=== PATIENT | male | born 1995 | race Caucasian/White ===

== ENCOUNTER 2022-07-14 11:36 | Emergency (ER) | payer SELFPAY ==
[~2022-07-14] VITALS: Ht 177.8 cm; Wt 99.8 kg
[2022-07-14 11:37] VITALS: BP 122/73
--- NOTE | 2022-07-14 11:40 | NUR ---
27M BIBA from the streets with c/o ground level fall and ETOH today. EMS reports pt was found near his home laying on the ground, abrasions noted to right side of forehead, bleeding controlled, pt placed in C-collar for precautions. Pt opens eyes when called by name, not responsive to commands upon assessment. No oral/facial trauma noted aside from abrasions. Pt placed on bedside monitor. Dr. Faust at bedside evaluating pt upon arrival.
[2022-07-14 12:51] LABS: BASOPHILS % (AUTO) 0.6 % (0.0-2.0); EOSINOPHILS % (AUTO) 0.2 % (0.0-4.0); HEMATOCRIT 42.3 % (36-52); HEMOGLOBIN 14.5 g/dL (12.0-18.0); LYMPHOCYTES # (AUTO) 1.6 K/uL (2.0-11.5); LYMPHOCYTES % (AUTO) 20.6 % (20.5-51.1); MEAN CORPUSCULAR HEMOGLOBIN 32 pg (27-31); MEAN CORPUSCULAR HGB CONC 34 g/dL (33-37); MEAN CORPUSCULAR VOLUME 93.8 fL (80-94); MONOCYTES # (AUTO) 0.4 K/uL (0.8-1.0); MONOCYTES % (AUTO) 5.5 % (1.7-9.3); NEUTROPHILS # (AUTO) 5.6 K/uL (1.8-7.7); NEUTROPHILS % (AUTO) 73.1 % (42.2-75.2); PLATELET COUNT (AUTO) 239 K/uL (140-450); RED BLOOD CELL COUNT(AUTO) 4.52 MIL/uL (4.20-6.10); RED CELL DISTRIBUTION WIDTH 13.7 % (11.6-13.7); WHITE BLOOD COUNT (AUTO) 7.6 K/uL (4.8-10.8)
[2022-07-14 13:14] LABS: ALBUMIN 3.6 g/dL (3.4-5.0); CARBON DIOXIDE 24.7 mmol/L (21-32); CREATININE 0.7 mg/dL (0.6-1.3); MAGNESIUM 2.1 mg/dL (1.8-2.4); PHOSPHORUS 1.5 mg/dL (2.5-4.9); POTASSIUM 3.7 mmol/L (3.5-5.1); TOTAL BILIRUBIN 0.3 mg/dL (0.0-1.0)
[2022-07-14] MEDS ORDERED: NACL 0.9% 1,000 ML IV ONE ×3 (13:35→14:25)
--- NOTE | 2022-07-14 16:02 | NUR ---
Pt awake and able to stand and follow commands. Nods to answer questions appropriately but continues to refuse to speak. S/w pt's sister who stated pt has hx of alcohol intoxication with similar behavior in the past.
[2022-07-14 17:15] VITALS: BP 124/94
--- NOTE | 2022-07-14 17:15 | NUR ---
Patient discharged with v/s stable. Written and verbal after care instructions about aljcohol intoxication and thyroid nodule given and explained. Patient verbalized understanding. Wheel Chair Assisted with to car. All questions addressed prior to discharge. Advised to follow up with PMD.
== END 2022-07-14 17:15 | disposition home or self-care (01) ==
LOC: MED 11:36
DX: R41.82 Altered mental status, unspecified (principal); F10.29 Alcohol dependence with unspecified alcohol-induced disorder; Y90.9 Presence of alcohol in blood, level not specified
CPT/HCPCS: 36415; 70450; 72125; 80053; 83735; 84100; 84484; 85025; 93005; 96360; 96361; 99285; G0482